=== PATIENT | female | born 1995 | race American Indian/Alaskan Native ===

== ENCOUNTER 2018-07-04 10:13 | Emergency (ER) | payer MEDICAID, OTHER ==
[2018-07-04 10:42] VITALS: BP 95/54
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
== END 2018-07-04 13:11 | disposition home or self-care (01) ==
LOC: ED 10:13
DX: S16.1XXA Strain of muscle, fascia and tendon at neck level, initial encounter (principal); S39.012A Strain of muscle, fascia and tendon of lower back, initial encounter; F17.200 Nicotine dependence, unspecified, uncomplicated; Z88.0 Allergy status to penicillin; V49.49XA Driver injured in collision with other motor vehicles in traffic accident, initial encounter; Y93.89 Activity, other specified; Y92.488 Other paved roadways as the place of occurrence of the external cause; Y99.8 Other external cause status
CPT/HCPCS: 99282

== ENCOUNTER 2019-09-15 19:16 | Emergency (ER) | payer OTHER, MEDICAID ==
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
[2019-09-15] MEDS ORDERED: CYCLOBENZAPRINE 10 MG TAB PO ONE (22:18)
[2019-09-15] MEDS ORDERED: ACETAMINOPHEN 500 MG TAB PO ONE (22:18)
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
[2019-09-15 22:56] VITALS: BP 106/57
== END 2019-09-15 23:00 | disposition home or self-care (01) ==
LOC: ED 19:16
DX: O9A.212 Injury, poisoning and certain other consequences of external causes complicating pregnancy, second trimester (principal); S29.011A Strain of muscle and tendon of front wall of thorax, initial encounter; Z3A.27 27 weeks gestation of pregnancy; S39.011A Strain of muscle, fascia and tendon of abdomen, initial encounter; M62.838 Other muscle spasm; Z79.899 Other long term (current) drug therapy; Z88.0 Allergy status to penicillin; V89.2XXA Person injured in unspecified motor-vehicle accident, traffic, initial encounter; Y93.89 Activity, other specified; Y92.410 Unspecified street and highway as the place of occurrence of the external cause; Y99.8 Other external cause status